=== PATIENT | male | born 1985 | race African-American/Black ===

== ENCOUNTER 2016-07-16 09:00 | Emergency (ER) | payer MEDICAID ==
[~2016-07-16] VITALS: Ht 190.5 cm; Wt 87.1 kg
[~2016-07-16 09:00] MED LIST: COLACE100 MG ORAL; CYCLOBENZAPRINE10 MG ORAL; IBUPROFEN600 MG ORAL; NKM; NORCO 5-325 TA1 EACH ORAL
[2016-07-16 09:04] VITALS: BP 126/78
--- NOTE | 2016-07-16 09:39 | Emergency Room Report ---
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 Pain is worse with trying to step and flex the ankle Mainly in the lower part of the ankle posteriorly Patient reports having previous surgery many years ago for Achilles tendon rupture Denies any other recent fall or trauma denies any swelling or erythema Allergies: Coded Allergies: No Known Allergies (Unverified , 02/03/12) Patient History Past Medical History: see triage record Pertinent Family History: none Reviewed Nursing Documentation: PMH: Agreed, PSxH: Agreed Nursing Documentation-PMH Past Medical History: No History, Except For Review of Systems All Other Systems: negative except mentioned in HPI Physical Exam Vital Signs Date Time Temp Pulse Resp B/P Pulse Ox O2 Delivery O2 Flow Rate FiO2 07/16/16 09:04 97.9 66 14 126/78 96 Room Air Sp02 EP Interpretation: reviewed, normal General Appearance: well appearing, no apparent distress Head: normocephalic, atraumatic Eyes: bilateral eye PERRL Musculoskeletal: other - Patient's Achilles tendon is palpable and appears to be appropriately clinically in place, calf is nontender, flexion of the ankle however does cause some discomfort posteriorly, no obvious swelling or erythema , good pulses distally Neurologic: alert, oriented x3, responsive Skin: no rash Lymphatic: no adenopathy Procedures Splinting Progress Posterior short leg splint was applied, does immobilize the ankle well, patient remains neurovascularly intact Already has crutches in place Medical Decision Making Diagnostic Impression: Primary Impression: Achilles tendinitis Additional Impression: Achilles tendon pain ER Course Patient appears to have had a presentation here and of April He has not had any further followup since then He states that in mid May he was starting to have more mobility Another discomfort is again returned I had a fairly lengthy discussion regarding the need for close outpatient followup MRI will be the test of choice for the patient to receive further information unfortunately does not meet emergency criteria for this Patient was provided the name of a primary physician And requires close followup Last Vital Signs Date Time Temp Pulse Resp B/P Pulse Ox O2 Delivery O2 Flow Rate FiO2 07/16/16 09:04 97.9 66 14 126/78 96 Room Air Status: improved Disposition: HOME, SELF-CARE Condition: Improved Additional Instructions: Patient is provided with the discharge instructions notified to follow up with primary doctor in the next 2-3 days otherwise return to the er with any worsening symptoms. CHRIS AVILES D.O. Jul 16, 2016 09:39
[2016-07-16] MEDS ORDERED: IBUPROFEN600 MG ORAL (10:07)
[2016-07-16 10:17] VITALS: BP 120/70
== END 2016-07-16 10:20 | disposition home or self-care (01) ==
LOC: EMR 09:34
DX: M76.62 Achilles tendinitis, left leg (principal)
CPT/HCPCS: 29515

== ENCOUNTER 2016-10-21 19:45 | Emergency (ER) | payer MEDICAID ==
[~2016-10-21] VITALS: Ht 190.5 cm; Wt 90.7 kg
[2016-10-21] MEDS ORDERED: Ketorolac 30mg Inj IM ONE (20:15)
[2016-10-21] MEDS ORDERED: TRAMADOL HCL50 MG ORAL (21:01)
[2016-10-21] MEDS ORDERED: IBUPROFEN600 MG ORAL (21:01)
[2016-10-21 21:30] VITALS: BP 114/67
--- NOTE | 2016-10-21 21:39 | Emergency Room Report ---
History of Present Illness General Chief Complaint: Lower Extremity Injury Source: Patient Present Illness HPI The patient is a 31-year-old male presenting for left ankle pain. The patient states that he was descending stairs and fell to the left ankle twist. Pain is described as a 9/10 dull ache and does not radiate from the ankle. Pain is worse with walking. He has tried Motrin at home which has not significantly helped. He denies prior injury to the ankle. He denies any other symptoms including nausea, vomiting, fever, chills, numbness or tingling, rash Allergies: Coded Allergies: No Known Allergies (Unverified , 02/03/12) Patient History Past Medical History: see triage record Pertinent Family History: none Reviewed Nursing Documentation: PMH: Agreed, PSxH: Agreed Nursing Documentation-PMH Past Medical History: No Stated History Review of Systems All Other Systems: negative except mentioned in HPI Physical Exam Vital Signs Date Time Temp Pulse Resp B/P Pulse Ox O2 Delivery O2 Flow Rate FiO2 10/21/16 19:59 98.1 59 16 114/67 98 Room Air Sp02 EP Interpretation: reviewed, normal General Appearance: no apparent distress, alert, GCS 15, non-toxic Head: normocephalic, atraumatic Eyes: bilateral eye PERRL, bilateral eye normal inspection Musculoskeletal: decreased range of motion, swelling, tender - TTP over the Lateral L ankle Neurologic: alert, oriented x3, responsive, motor strength/tone normal, sensory intact, speech normal Psychiatric: judgement/insight normal, memory normal, mood/affect normal, no suicidal/homicidal ideation Skin: normal color, no rash, warm/dry, well hydrated Lymphatic: no adenopathy Procedures Splinting Splinting : Consent: Verbal Location: L leg Hand-Made Type: plaster Splint: poserior short Pre-Proc Neuro Vasc Exam: normal Post-Proc Neuro Vasc Exam: normal Patient Tolerated: Well Complications: None Medical Decision Making PA Attestation Dr. Beebe is my supervising physician. Patient management was discussed with my supervising physician Diagnostic Impression: Primary Impression: Ankle sprain Qualified Codes: S93.402A - Sprain of unspecified ligament of left ankle, initial encounter ER Course The patient is a 31-year-old male presenting for left ankle pain Ddx considered include but not limited to sprain/strain, fracture, contusion Physical exam: Vitals within normal limits. No apparent distress Left ankle: There is tenderness to palpation and edema over the left lateral malleolus. Limited active range of motion. Sensation intact to light touch. X-ray of the left ankle shows STS only And left leg posterior splint is placed. Patient has crutches. ER precautions are given. Patient given prescription for pain medication and will follow up with primary care physician. RICE instructions given Other X-Ray Diagnostic Results Other X-Ray Diagnostic Results : X-Ray Ordered: L ankle Date: Oct 21, 2016 EP Interpretation: Yes Findings: no fractures, no dislocation, other - + STS Number of Views: 3 PA Scribe Text I am acting as scribe for my supervising physician. My supervising physician's interpretation of the L ankle xrays are there are no fractures, dislocations or soft tissue swelling. Last Vital Signs Date Time Temp Pulse Resp B/P Pulse Ox O2 Delivery O2 Flow Rate FiO2 10/21/16 19:59 98.1 59 16 114/67 98 Room Air Status: improved Disposition: HOME, SELF-CARE Condition: Improved Scripts Tramadol Hcl* (ULTRAM*) 50 Mg Tablet 50 MG ORAL Q6H Y for For Pain, #10 TAB 0 Refills Prov: DULCE MARIA MONTEJO P.A. 10/21/16 Ibuprofen* (MOTRIN*) 600 Mg Tablet 600 MG ORAL Q8H Y for For Pain, #30 TAB 0 Refills Prov: DULCE MARIA MONTEJO P.A. 10/21/16 Patient Instructions: Ankle Sprain Additional Instructions: I discussed my findings with the patient. All questions and concerns have been answered. Treatment and medication compliance have been addressed. I advised the patient that they need to follow up with PMD in 3-5 days. Return to ED if pain remains or worsens, numbness or tingling occurs, new rash is noticed, fever is noticed, or if needed for any reason. Patient verbalized understanding of discharge instructions. DULCE MARIA MONTEJO Oct 21, 2016 21:39
--- NOTE | 2016-10-22 11:23 | Diagnostic Imaging Report ---
Indication: PAIN Technique: 3 views of the left ankle Comparison: 04/30/2016 Findings: No acute fractures. No dislocations. Joint spaces are preserved. Normal mineralization. No radiopaque foreign body. No significant change Impression: Negative
== END 2016-10-21 21:32 | disposition home or self-care (01) ==
LOC: EMR 20:20
DX: S93.402A Sprain of unspecified ligament of left ankle, initial encounter (principal); W10.9XXA Fall (on) (from) unspecified stairs and steps, initial encounter; Y92.89 Other specified places as the place of occurrence of the external cause
CPT/HCPCS: 29515; 73610; 96372; 97761; 99284; J1885

== ENCOUNTER 2016-12-24 21:54 | Emergency (ER) | payer MEDICAID ==
[~2016-12-24] VITALS: Ht 193 cm; Wt 86.2 kg
[~2016-12-24 21:54] MED LIST changes: +TRAMADOL HCL50 MG ORAL
[2016-12-24 22:30] VITALS: BP 115/72
[2016-12-24] MEDS ORDERED: Tylenol #3 tab (300mg/30mg) PO ONE (23:15)
[2016-12-24] MEDS ORDERED: NORCO 5-325 TA1 EACH ORAL (23:56)
[2016-12-24] MEDS ORDERED: IBUPROFEN600 MG ORAL (23:56)
[2016-12-25 00:15] VITALS: BP 121/65
--- NOTE | 2016-12-25 03:52 | Emergency Room Report ---
History of Present Illness General Chief Complaint: Multiple Trauma/Fall Source: Patient Present Illness HPI 31-year-old male presents ED for evaluation. States that tonight he was walking down the stairs when he tripped and fell landing on his right knee. Denies any other injuries. Notes pain and swelling to his right knee. 02/10, nonradiating. Unable to bare weight. Patient came with crutches. Denies any other injuries. No other aggravating relieving factors. Denies any other associated symptoms Allergies: Coded Allergies: No Known Allergies (Unverified , 02/03/12) Patient History Past Medical History: none Past Surgical History: none Pertinent Family History: none Social History: Denies: alcohol use, drug use, smoking Immunizations: UTD Reviewed Nursing Documentation: PMH: Agreed, PSxH: Agreed Review of Systems All Other Systems: negative except mentioned in HPI Physical Exam Vital Signs Date Time Temp Pulse Resp B/P Pulse Ox O2 Delivery O2 Flow Rate FiO2 12/24/16 22:22 98.1 63 16 115/72 97 Room Air Sp02 EP Interpretation: reviewed, normal General Appearance: no apparent distress, alert, GCS 15, non-toxic Head: normocephalic Eyes: bilateral eye PERRL, bilateral eye normal inspection ENT: normal ENT inspection Neck: normal inspection Respiratory: normal inspection Cardiovascular #1: normal inspection Gastrointestinal: normal inspection Rectal: deferred Genitourinary: no CVA tenderness Musculoskeletal: normal range of motion, tender - R knee Neurologic: alert, oriented x3, responsive, motor strength/tone normal, sensory intact, speech normal Psychiatric: normal inspection Skin: normal inspection Lymphatic: normal inspection Procedures Splinting Splinting : Consent: Verbal Pre-Made Type: knee immobilizer Pre-Proc Neuro Vasc Exam: normal Post-Proc Neuro Vasc Exam: normal Patient Tolerated: Well Complications: None Medical Decision Making Diagnostic Impression: Primary Impression: Knee injury Qualified Codes: S89.91XA - Unspecified injury of right lower leg, initial encounter Additional Impression: Avulsion fracture of tibial tuberosity ER Course Hospital Course 31-year-old M presents to ED complaining of R knee pain s/p trip and fall Differential diagnoses include: Fracture, dislocation, sprain, contusion Clinical course Patient placed on stretcher. After initial history and physical, I ordered pain medications and Xrays of R knee Xrays prelim read shows avulsion fx of tibial tubercle. placed in knee immobilzer Diagnosis - avulsion fracture of tibial tuberosity Stable and discharged to home with prescription for Motrin, [place]. apply ice, keep elevated. weight bear as tolerated. Followup with PMD. Return to ED if symptoms recur or worsen Other X-Ray Diagnostic Results X-Ray ordered: R knee # of Views/Limited Vs Complete: 3 View EP Interpretation: Yes Interpretation: no dislocation, no soft tissue swelling, other - fracture tibial tubercle Indication: Pain Impression: Other - fracture tibial tubercle Interpreting ER Provider: Gage Rice mD Last Vital Signs Date Time Temp Pulse Resp B/P Pulse Ox O2 Delivery O2 Flow Rate FiO2 12/24/16 22:22 98.1 63 16 115/72 97 Room Air Status: improved Disposition: HOME, SELF-CARE Condition: Stable Scripts Hydrocodone Bit/Acetaminophen 5-325* (NORCO 5-325*) 1 Each Tablet 1 TAB ORAL Q6H Y for For Pain, #10 TAB 0 Refills Prov: GAGE RICE M.D. 12/24/16 Ibuprofen* (MOTRIN*) 600 Mg Tablet 600 MG ORAL Q8H Y for For Pain, #30 TAB 0 Refills Prov: GAGE RICE M.D. 12/24/16 Patient Instructions: Tibial Tubercle Avulsion Fracture-SportsMed GAGE RICE M.D. Dec 25, 2016 03:52
--- NOTE | 2016-12-25 06:53 | Diagnostic Imaging Report ---
Indications: Right knee pain Technique: 3 views right knee. Findings: Comparison: None Linear lucency partially traverses the base of a large spur emanating from the tibial tuberosity in region of patellar tendon insertion. No overlying soft tissue swelling. No additional fracture, dislocation, joint space widening or effusion, lytic destruction, periosteal reaction , surrounding soft tissue swelling/foreign body/gas, or other acute changes are identified. Lateral knee joint compartment mildly narrowed with marginal osteophyte formation. No other chronic changes are demonstrated. IMPRESSION: Suggestion of fracture through base of tibial tuberosity enthesophyte, appears nonacute. Correlate clinically.. No other evidence of acute abnormality Degenerative arthropathy lateral knee compartment
== END 2016-12-25 00:15 | disposition home or self-care (01) ==
LOC: EMR 22:44
DX: S82.151A Displaced fracture of right tibial tuberosity, initial encounter for closed fracture (principal); W10.9XXA Fall (on) (from) unspecified stairs and steps, initial encounter; Y92.89 Other specified places as the place of occurrence of the external cause
CPT/HCPCS: 29530; 99284

== ENCOUNTER 2017-04-03 11:57 | Emergency (ER) | payer MEDICAID ==
[~2017-04-03] VITALS: Ht 193 cm; Wt 90.7 kg
[2017-04-03] MEDS ORDERED: Norco 5mg/325mg tab ORAL ONE (12:30)
--- NOTE | 2017-04-03 13:00 | Emergency Room Report ---
History of Present Illness General Chief Complaint: Lower Extremity Injury Source: Patient (Jessy Ramires) Present Illness HPI 31-year-old male presents to the emergency department complaining of 10/10 in severity localized pain to the medial portion of the plantar left foot times one day. Patient states that he heard a pop and had pain instantly. Patient states pain is exacerbated upon bearing weight and attempting to walk. History of stress fracture in addition to the Achilles tendon injury 4 years prior in the affected extremity. Patient denies appreciable trauma or fall. Denies bruising, erythema or swelling. Denies numbness tingling or loss of sensation or gross motor movements of the extremities, incontinence of bowel or bladder. Denies CP, Palpitations, LOC, AMS, dizziness, Changes in Vision, Sensation, paresthesias, or a sudden severe headache. (Jessy Ramires) Allergies: Coded Allergies: No Known Allergies (Unverified , 02/03/12) Patient History Past Medical History: see triage record Past Surgical History: none Pertinent Family History: none Immunizations: UTD Reviewed Nursing Documentation: PMH: Agreed, PSxH: Agreed (Jessy Ramires) Nursing Documentation-PMH Past Medical History: No History, Except For (Jessy Ramires) Review of Systems All Other Systems: negative except mentioned in HPI (Jessy Ramires) Physical Exam Vital Signs Date Time Temp Pulse Resp B/P (MAP) Pulse Ox O2 Delivery O2 Flow Rate FiO2 04/03/17 12:19 98.1 69 18 122/77 100 Room Air Sp02 EP Interpretation: reviewed, normal General Appearance: no apparent distress, alert, GCS 15, non-toxic Head: normocephalic, atraumatic Eyes: bilateral eye normal inspection, bilateral eye PERRL ENT: hearing grossly normal, normal voice Neck: full range of motion Respiratory: lungs clear, normal breath sounds Cardiovascular #1: regular rate, rhythm Rectal: deferred Musculoskeletal: back normal, normal range of motion, tender - TTP to the medial plantar aspect of the left foot, no bruising, no obvious deformity, no swelling, NVI Neurologic: alert, oriented x3, responsive, motor strength/tone normal, sensory intact, speech normal Skin: normal color, no rash, warm/dry, well hydrated Lymphatic: no adenopathy (Jessy Ramires) Medical Decision Making PA Attestation Dr. Almanzar is my supervising Physician whom patient management has been discussed with. (Jessy Ramires) Diagnostic Impression: Primary Impression: Sprain of foot, left Qualified Codes: S93.602A - Unspecified sprain of left foot, initial encounter ER Course 31-year-old male presents to the emergency department complaining of 10/10 in severity localized pain to the medial portion of the plantar left foot times one day. Patient states that he heard a pop and had pain instantly. Patient states pain is exacerbated upon bearing weight and attempting to walk. History of stress fracture in addition to the Achilles tendon injury 4 years prior in the affected extremity. Patient denies appreciable trauma or fall. Denies bruising, erythema or swelling. Denies numbness tingling or loss of sensation or gross motor movements of the extremities, incontinence of bowel or bladder. Denies CP, Palpitations, LOC, AMS, dizziness, Changes in Vision, Sensation, paresthesias, or a sudden severe headache. Ddx considered but are not limited to Fracture, dislocation, contusion, Sprain/ Strain/Spasm just to name a few. Vital signs: are WNL, pt. is afebrile H&PE are most consistent with musculoskeletal injury will perform imaging to r/ o fractures/dislocations. ORDERS: - X-ray Left foot 3 views - negative for fx, Dislocation, or significant soft tissue injury, per preliminary read in ED by Dr. Almanzar - interpretation is scribed by PA. ED INTERVENTIONS: - [place] PO -Pt. already has crutches which he brought from home. Pt. declined [place] Wrap. DISCHARGE: At this time pt. is stable for d/c to home. Will provide printed patient care instructions, and any necessary prescriptions. Care plan and follow up instructions have been discussed with the patient prior to discharge. (Jessy Ramires) Other X-Ray Diagnostic Results Other X-Ray Diagnostic Results : Electronically Signed by: Scribe documentation reviewed by me and is accurate Carlos Almanzar MD (Carlos Almanzar M.D.) Last Vital Signs Date Time Temp Pulse Resp B/P (MAP) Pulse Ox O2 Delivery O2 Flow Rate FiO2 04/03/17 12:19 98.1 69 18 122/77 100 Room Air (Jessy Ramires) Disposition: HOME, SELF-CARE Condition: Stable Scripts Naproxen* (NAPROSYN*) 500 Mg Tablet 500 MG ORAL TWICE A DAY for 10 Days, #20 TAB Prov: Jessy Ramires 04/03/17 Patient Instructions: Foot Sprain Additional Instructions: Take medications as directed. Follow up with a Primary Care Provider in 3-5 days, even if your symptoms have resolved. --Please review list of primary care clinics, if you do not already have a primary care provider Return sooner to ED if new symptoms occur, or current symptoms become worse. Do not drink alcohol, drive, or operate heavy machinery while taking [ ] as this may cause drowsiness. - Please note that this Emergency Department Report was dictated using [employer] events driver technology software, occasionally this can lead to erroneous entry secondary to interpretation by the dictation equipment. Jessy Ramires Apr 03, 2017 13:00 Carlos Almanzar M.D. Apr 07, 2017 21:59
[2017-04-03] MEDS ORDERED: NAPROSYN500 M1 ORAL (13:17)
[2017-04-03 14:00] VITALS: BP 121/80
--- NOTE | 2017-04-04 11:24 | Diagnostic Imaging Report ---
Indication: Pain Comparison: None Findings: 3 views of the left foot were obtained. The lateral view there is a suspected small cortical defect or osteochondral defect suggest further evaluation with MRI. No acute fractures, malalignment are identified. Soft tissues are unremarkable. Impression: Questionable small osseous defect anterior aspect of the tibial plafond. Recommend further evaluation with MRI
== END 2017-04-03 14:00 | disposition home or self-care (01) ==
LOC: EMR 13:09
DX: S93.602A Unspecified sprain of left foot, initial encounter (principal); X50.9XXA Other and unspecified overexertion or strenuous movements or postures, initial encounter; Y92.89 Other specified places as the place of occurrence of the external cause
CPT/HCPCS: 99283

== ENCOUNTER 2017-08-24 19:53 | Emergency (ER) | payer MEDICAID ==
[~2017-08-24] VITALS: Ht 190.5 cm; Wt 90.7 kg
[~2017-08-24 19:53] MED LIST changes: +NAPROSYN500 M1 ORAL
[2017-08-24 20:05] VITALS: BP 116/68
[2017-08-24] MEDS ORDERED: Ketorolac 60mg Inj IM ONE (20:15)
[2017-08-24] MEDS ORDERED: HYDROcodone/Acetamin 10/325 tab ORAL ONE (20:15)
[2017-08-24] MEDS ORDERED: IBUPROFEN600 MG ORAL (20:16)
[2017-08-24] MEDS ORDERED: ROBAXIN-750750 MG PO (20:16)
--- NOTE | 2017-08-24 20:20 | Emergency Room Report ---
History of Present Illness General Chief Complaint: Back Pain-No Injury Source: Patient Present Illness HPI 32YOM with upper back pain/spasm since waking up this morning Worked out as normal yesterday afternoon No other trauma, heavy lifting Denies numbness/tingling or pain radiating to arms or head/neck No OTC meds taken Allergies: Coded Allergies: No Known Allergies (Unverified , 02/03/12) Patient History Past Medical History: none Past Surgical History: none Pertinent Family History: none Social History: Denies: smoking, alcohol use, drug use Immunizations: UTD Reviewed Nursing Documentation: PMH: Agreed, PSxH: Agreed Review of Systems All Other Systems: negative except mentioned in HPI Physical Exam Vital Signs Date Time Temp Pulse Resp B/P (MAP) Pulse Ox O2 Delivery O2 Flow Rate FiO2 08/24/17 20:00 97.8 59 20 116/68 99 Room Air 97.9 Sp02 EP Interpretation: reviewed, normal General Appearance: normal inspection, well appearing, no apparent distress, alert, GCS 15, non-toxic Head: normocephalic, atraumatic Eyes: bilateral eye PERRL, bilateral eye EOMI ENT: normal ENT inspection, hearing grossly normal, normal pharynx, no angioedema, normal voice, TMs + canals normal, uvula midline, moist mucus membranes Neck: normal inspection, full range of motion, supple, thyroid normal, no meningismus, no bony tend Respiratory: normal inspection, lungs clear, normal breath sounds, no rhonchi, no respiratory distress, no retraction, no accessory muscle use, no wheezing, speaking full sentences Cardiovascular #1: regular rate, rhythm, no edema, no JVD, normal capillary refill Gastrointestinal: normal inspection, normal bowel sounds, non tender, soft, no mass, no peritonitis, non-distended, no guarding, no hernia, no pulsatile mass Genitourinary: no CVA tenderness Musculoskeletal: normal inspection, back normal, normal range of motion, no calf tenderness, pelvis stable, Debbi's Sign negative, other - Upper thorax: mild paravertebral ttp, spasm Neurologic: normal inspection, alert, oriented x3, responsive, vegetable farmer III-XII nml as tested, motor strength/tone normal, cerebellar normal, normal gait, speech normal Psychiatric: normal inspection, judgement/insight normal, mood/affect normal, no suicidal/homicidal ideation, no delusions Skin: normal inspection, normal color, no rash Lymphatic: normal inspection, no adenopathy Medical Decision Making Diagnostic Impression: Primary Impression: Back pain Qualified Codes: M54.6 - Pain in thoracic spine ER Course VSS, afebrile Midline thoracic spasm Atraumatic Was given cocktail of meds in ED with improvement Rx motrin, robaxin ER course: Patient has remained stable during ED stay. Disposition: Patient is to be discharged to home. Prescriptions given are motrin, robaxin Patient is instructed to follow up with their primary care doctor within 5 days. Strict return precautions discussed with patient such as fever, chills, worsening/severe pain, nausea, vomiting, which may indicate severe illness. Patient verbalizes understanding and agrees with plan. Please note that this Emergency Department Report was dictated using [employer] soloist technology software, occasionally this can lead to erroneous entry secondary to interpretation by the dictation equipment Last Vital Signs Date Time Temp Pulse Resp B/P (MAP) Pulse Ox O2 Delivery O2 Flow Rate FiO2 08/24/17 20:05 97.9 69 20 116/68 99 Room Air 97.9 Status: improved Disposition: HOME, SELF-CARE Condition: Improved Scripts Methocarbamol* (ROBAXIN-750*) 750 Mg Tablet 750 MG PO TID for back pain for 7 Days, #30 TAB 0 Refills Prov: STANFORD WRIGHT M.D. 08/24/17 Ibuprofen* (MOTRIN*) 600 Mg Tablet 600 MG ORAL THREE TIMES A DAY for back pain for 7 Days, #30 TAB 0 Refills Prov: STANFORD WRIGHT M.D. 08/24/17 Patient Instructions: Thoracic Strain, [id number] Additional Instructions: - Take Robaxin with motrin every 8 hours with food for pain - Apply ice or heat to see what works better - Continue to stretch, do cardio to loosen muscles STANFORD WRIGHT M.D. Aug 24, 2017 20:20
[2017-08-24 20:30] VITALS: BP 116/68
== END 2017-08-24 20:31 | disposition home or self-care (01) ==
LOC: EMR 20:31
DX: M54.6 Pain in thoracic spine (principal)
CPT/HCPCS: 96372; 99284

== ENCOUNTER 2017-12-13 14:08 | Emergency (ER) | payer MEDICAID ==
[~2017-12-13] VITALS: Ht 190.5 cm; Wt 88.5 kg
[~2017-12-13 14:08] MED LIST changes: +ROBAXIN-750750 MG PO
[2017-12-13 14:55] VITALS: BP 110/67
--- NOTE | 2017-12-13 15:11 | Emergency Room Report ---
History of Present Illness General Chief Complaint: Back Pain-No Injury Source: Patient Present Illness HPI 32-year-old male patient presents ER complaining of upper back and neck pain since this morning. Reports that he woke up and felt a spasm. Reports history of similar symptoms, was previously seen at [facility] for similar symptoms. Denies other acute symptoms at this time. Denies history of diabetes. Denies vomiting or acute trauma. Reports was seen by PCP but did not get referral to physical therapy or other follow-up. Denies fever, chest pain, shortness of breath. Allergies: Coded Allergies: No Known Allergies (Unverified , 02/03/12) Patient History Past Medical History: see triage record Reviewed Nursing Documentation: PMH: Agreed; PSxH: Agreed Nursing Documentation-PMH Past Medical History: No History, Except For Review of Systems All Other Systems: negative except mentioned in HPI Physical Exam Vital Signs Date Time Temp Pulse Resp B/P (MAP) Pulse Ox O2 Delivery O2 Flow Rate FiO2 12/13/17 14:45 98.0 50 16 110/67 98 Room Air 98.1 Sp02 EP Interpretation: reviewed, normal General Appearance: well appearing, no apparent distress, alert, GCS 15, non- toxic Head: normocephalic, atraumatic Eyes: bilateral eye normal inspection, bilateral eye PERRL ENT: hearing grossly normal, normal pharynx, no angioedema, normal voice, uvula midline, moist mucus membranes Neck: no bony tend, other - decreased range of motion secondary to pain and stiffness Respiratory: lungs clear, normal breath sounds, no rhonchi, no respiratory distress, no accessory muscle use, no wheezing, speaking full sentences Cardiovascular #1: regular rate, rhythm, no edema Musculoskeletal: back normal, digits/nails normal, gait/station normal, normal range of motion, non-tender, other - no bony step-off Neurologic: alert, oriented x3, responsive, motor strength/tone normal, sensory intact Psychiatric: mood/affect normal Skin: no rash Medical Decision Making PA Attestation Dr. Crandall is my supervising Physician whom patient management has been discussed with. Diagnostic Impression: Primary Impression: Muscle spasm ER Course Pt. presents to the ED c/o Neck and upper back pain. Ddx considered but are not limited to fracture, sprain, strain, contusion, dislocation. No erythema, no warmth to touch, no fever, nontoxic appearing, low suspicion for septic joint. Vital signs: are WNL, pt. is afebrile Ordered X-ray and pain medication. ER COURSE Provided with pain medication. CURES reviewed. PE benign, no bony tenderness, no TTP. reports history of similar symptoms. Likely muscle spasm. Patient instructed on rest, ice and heat. Followup with primary care provider. Discuss referral to ortho/pain management/ PT as needed. Discuss further imaging with MRI/CT as needed. DISCHARGE: -Rx provided for Ibuprofen for pain symptoms. -Rx provided for Methocarbamol. SE drowsiness, do not drink, drive, or operate heavy machinery while using. -Rx provided for lidocaine patches. At this time pt. is stable for d/c to home. Patient is resting comfortably, in no acute distress, nontoxic appearing, talking without difficulty. Will provide printed patient care instructions, and any necessary prescriptions. Patient instructed to follow with primary care provider in 3 - 5 days and to request further follow-up as needed. Care plan and follow up instructions have been discussed with the patient prior to discharge. Take medications as directed. Patient questions asked and answered. Patient reports understanding and agreement to treatment plan. ER precautions given, patient instructed to return to ER immediately for any new or worsening of symptoms. - Please note that this Emergency Department Report was dictated using [email or web address] technology software, occasionally this can lead to erroneous entry secondary to interpretation by the dictation equipment. Last Vital Signs Date Time Temp Pulse Resp B/P (MAP) Pulse Ox O2 Delivery O2 Flow Rate FiO2 12/13/17 14:55 98.1 50 16 110/67 98 Room Air 98.1 Disposition: HOME, SELF-CARE Condition: Stable Scripts Lidocaine (Lidocaine) 1 Each Adh..patch 700 MG TP DAILY for 5 Days, #5 PATCH Prov: Wellington John P.A. 12/13/17 Ibuprofen* (MOTRIN*) 600 Mg Tablet 600 MG ORAL Q8H PRN for For Pain, #30 TAB 0 Refills Prov: Wellington John P.A. 12/13/17 Methocarbamol* (METHOCARBAMOL*) 500 Mg Tablet 500 MG ORAL BID PRN for For Pain, #20 TAB 0 Refills Prov: Wellington John.A. 12/13/17 Patient Instructions: Back Exercises, [id number], Muscle Cramps and Spasms Additional Instructions: Patient instructed to follow up with primary care provider and discuss further referral to orthopedics and physical therapy. Patient instructed on rest, ice, heat. Take medications as directed. SE drowsiness, do not take prior to drinking, driving, or operating heavy machinery. Patient questions asked and answered. ER precautions given, patient instructed to return to ER immediately for any new or worsening of symptoms. Wellington John Dec 13, 2017 15:11
[2017-12-13] MEDS ORDERED: IBUPROFEN600 MG ORAL (15:15)
[2017-12-13] MEDS ORDERED: Norco 5mg/325mg tab ORAL ONE (15:15)
[2017-12-13] MEDS ORDERED: Methocarbamol 500mg tab ORAL ONE (15:15)
[2017-12-13] MEDS ORDERED: METHOCARBAMOL500 MG ORAL (15:15)
[2017-12-13] MEDS ORDERED: LIDOCAINE700 M1 TP (15:15)
[2017-12-13 15:28] VITALS: BP 110/67
== END 2017-12-13 15:25 | disposition home or self-care (01) ==
LOC: EMR 15:10
DX: M62.838 Other muscle spasm (principal); M54.6 Pain in thoracic spine; M54.2 Cervicalgia
CPT/HCPCS: 99284

== ENCOUNTER 2018-04-15 15:07 | Emergency (ER) | payer MEDICAID ==
[~2018-04-15] VITALS: Ht 190.5 cm; Wt 88.5 kg
[~2018-04-15 15:07] MED LIST changes: +LIDOCAINE700 M1 TP; +METHOCARBAMOL500 MG ORAL
[2018-04-15] MEDS ORDERED: Lidocaine 2% Visc 15ml soln ORAL ONE (15:45)
[2018-04-15] MEDS ORDERED: Mylanta II UD 30ml ORAL ONE (15:45)
--- NOTE | 2018-04-15 15:58 | Diagnostic Imaging Report ---
EXAM: XR Chest, 1 View CLINICAL HISTORY: PAIN TECHNIQUE: Frontal view of the chest. COMPARISON: No relevant prior studies available. FINDINGS: Lungs: Unremarkable. No consolidation. Pleural space: Unremarkable. No pneumothorax. Heart: Unremarkable. No cardiomegaly. Mediastinum: Unremarkable. Bones/joints: Unremarkable. IMPRESSION: No acute cardiopulmonary disease.
[2018-04-15 16:02] VITALS: BP 120/77
[2018-04-15] MEDS ORDERED: Isovue-300 100ml vial INJ PRN (16:15)
[2018-04-15] MEDS ORDERED: Ketorolac 30mg Inj IV ONE (16:15)
[2018-04-15 16:41] LABS: BASOPHILS % (AUTO) 0.9 % (0.0-2.0); HEMATOCRIT 38.8 % (42.0-52.0); HEMOGLOBIN 13.5 G/DL (14.2-18.0); LYMPHOCYTES % (AUTO) 23.8 % (20.0-45.0); MEAN CORPUSCULAR VOLUME 92 FL (80-99); MONOCYTES % (AUTO) 10.6 % (1.0-10.0); NEUTROPHILS % (AUTO) 63.8 % (45.0-75.0); PLATELET COUNT 202 K/UL (150-450); RED BLOOD COUNT 4.24 M/UL (4.70-6.10); RED CELL DISTRIBUTION WIDTH 11.5 % (11.6-14.8)
[2018-04-15 17:23] LABS: ANION GAP 5 mmol/L (5-15); BLOOD UREA NITROGEN 22 mg/dL (7-18); CALCIUM 8.8 MG/DL (8.5-10.1); CARBON DIOXIDE 32 MMOL/L (21-32); CHLORIDE 105 MMOL/L (98-107); CREATININE 1.2 MG/DL (0.55-1.30); POTASSIUM 4.2 MMOL/L (3.5-5.1); SODIUM 142 MMOL/L (136-145)
--- NOTE | 2018-04-15 17:23 | Emergency Room Report ---
History of Present Illness General Chief Complaint: Pain Source: Patient (Jessy Ramires) Present Illness HPI 32-year-old male presents to the emergency department with 2 complaints. First is 8 out of 10 in severity pain in the anterior chest as well as radiation up towards the right side of his neck 2 days. Patient reports pain is worse with taking deep breaths he denies cough, fevers, chills or trauma to the chest. Patient states that he had URI symptoms 2 weeks ago but denies moderate coughing. Patient is also complaining of frequent stools some of which have been diarrhea times one day. Denies constipation previously. Patient also states he has a burning sensation in his stomach. He denies nausea or vomiting. Denies recent travel or ill contacts with similar symptoms. Patient also reports that 2 days ago he was drinking and is wondering if this may have contributed to his symptoms. Patient Denies history of asthma or COPD. Reports that his pain has been progressive. Pt. denies more strenuous activities than what he normally does. Pt. first noticed pain in his chest while on a hike yesterday. pt. reports deep breaths exacerbate his pain. (Jessy Ramires) Allergies: Coded Allergies: No Known Allergies (Unverified , 02/03/12) Patient History Past Medical History: see triage record Past Surgical History: none Pertinent Family History: none Reviewed Nursing Documentation: PMH: Agreed; PSxH: Agreed (Jessy Ramires) Nursing Documentation-PMH Past Medical History: No History, Except For (Jessy Ramires) Review of Systems All Other Systems: negative except mentioned in HPI (Jessy Ramires) Physical Exam Vital Signs Date Time Temp Pulse Resp B/P (MAP) Pulse Ox O2 Delivery O2 Flow Rate FiO2 04/15/18 15:13 98.6 59 16 111/67 96 Room Air 98.6 Sp02 EP Interpretation: reviewed, normal General Appearance: well appearing, no apparent distress, alert, GCS 15, non- toxic Head: normocephalic, atraumatic Eyes: bilateral eye normal inspection ENT: hearing grossly normal, normal voice Neck: full range of motion Respiratory: chest non-tender, lungs clear, normal breath sounds, no respiratory distress, no accessory muscle use, no wheezing, speaking full sentences Cardiovascular #1: regular rate, rhythm Gastrointestinal: normal bowel sounds - mildly hyperactive bs in all 4 quadrants. mild epigastric ttp, otherwise unremarkable, non tender, soft, non- distended, no guarding Rectal: deferred Musculoskeletal: back normal, gait/station normal, normal range of motion, tender - pain is reproducible with palpation of anterior chest, right clavicular area and lesser but present in posterior ribs. Neurologic: alert, oriented x3, responsive, motor strength/tone normal, sensory intact, normal gait, speech normal, grossly normal Psychiatric: judgement/insight normal Skin: normal color, no rash, warm/dry, well hydrated Lymphatic: no adenopathy (Jessy Ramires) Procedures Critical Care Time Critical Care Time 50 minutes For multiple re-evaluations. Critical findings concerning for cardiopulmonary pathology multiple re-evaluations not including any procedural times (Ashok Crandall DO) Medical Decision Making PA Attestation Dr. Crandall is my supervising Physician whom patient management has been discussed with. (Jessy Ramires) Medicare Attestation Please refer to the note for the full specifics I do agree with the exam and workup I saw the patient as well with evaluation noted Patient's EKG is shared with cardiology Dr young he feels that this is most likely consistent with early re-pole Given the patient's clinical complaints pericarditis is also entertained He is however afebrile here Does not appear in acute distress Further workup is initiated with imaging for consideration of pneumomediastinum versus other Patient otherwise remaining hemodynamically stable (Ashok Crandall DO) Diagnostic Impression: Primary Impression: Pneumomediastinum Additional Impression: Diarrhea Qualified Codes: R19.7 - Diarrhea, unspecified Labs Test 04/15/18 16:20 White Blood Count 6.0 K/UL (4.8-10.8) Red Blood Count 4.24 M/UL (4.70-6.10) Hemoglobin 13.5 G/DL (14.2-18.0) Hematocrit 38.8 % (42.0-52.0) Mean Corpuscular Volume 92 FL (80-99) Mean Corpuscular Hemoglobin 31.8 PG (27.0-31.0) Mean Corpuscular Hemoglobin Concent 34.7 G/DL (32.0-36.0) Red Cell Distribution Width 11.5 % (11.6-14.8) Platelet Count 202 K/UL (150-450) Mean Platelet Volume 8.5 FL (6.5-10.1) Neutrophils (%) (Auto) 63.8 % (45.0-75.0) Lymphocytes (%) (Auto) 23.8 % (20.0-45.0) Monocytes (%) (Auto) 10.6 % (1.0-10.0) Eosinophils (%) (Auto) 1.0 % (0.0-3.0) Basophils (%) (Auto) 0.9 % (0.0-2.0) Sodium Level 142 MMOL/L (136-145) Potassium Level 4.2 MMOL/L (3.5-5.1) Chloride Level 105 MMOL/L (98-107) Carbon Dioxide Level 32 MMOL/L (21-32) Anion Gap 5 mmol/L (5-15) Blood Urea Nitrogen 22 mg/dL (7-18) Creatinine 1.2 MG/DL (0.55-1.30) Estimat Glomerular Filtration Rate > 60 mL/min (>60) Glucose Level 94 MG/DL (74-106) Calcium Level 8.8 MG/DL (8.5-10.1) Total Bilirubin 0.8 MG/DL (0.2-1.0) Aspartate Amino Transf (AST/SGOT) 22 U/L (15-37) Alanine Aminotransferase (ALT/SGPT) 31 U/L (12-78) Alkaline Phosphatase 53 U/L (46-116) Total Creatine Kinase 206 U/L (26-308) Creatine Kinase MB 0.5 NG/ML (0.0-3.6) Creatine Kinase MB Relative Index 0.2 Troponin I 0.000 ng/mL (0.000-0.056) Total Protein 7.4 G/DL (6.4-8.2) Albumin 3.8 G/DL (3.4-5.0) Globulin 3.6 g/dL Albumin/Globulin Ratio 1.1 (1.0-2.7) Lipase 141 U/L (73-393) Urine Opiates Screen Negative (NEGATIVE) Urine Barbiturates Screen Negative (NEGATIVE) Phencyclidine (PCP) Screen Negative (NEGATIVE) Urine Amphetamines Screen Negative (NEGATIVE) Urine Benzodiazepines Screen Negative (NEGATIVE) Urine Cocaine Screen Negative (NEGATIVE) Urine Marijuana (THC) Screen Positive (NEGATIVE) (Ramires,Jessy PA) ER Course Patient's CAT scan does result with findings consistent with pneumomediastinum Patient has several re-evaluations with this remains hemodynamically stable With this finding contact was made emergently with [facility] as the patient will require further specialty consultation Patient's blood work is otherwise at baseline levels Patient does have marijuana positive Contact is made with Dr. Robles cardiothoracic surgery at [facility] who has graciously accepted the patient to her service Patient is getting set for ALS transport for higher level of care Labs Test 04/15/18 16:20 White Blood Count 6.0 K/UL (4.8-10.8) Red Blood Count 4.24 M/UL (4.70-6.10) Hemoglobin 13.5 G/DL (14.2-18.0) Hematocrit 38.8 % (42.0-52.0) Mean Corpuscular Volume 92 FL (80-99) Mean Corpuscular Hemoglobin 31.8 PG (27.0-31.0) Mean Corpuscular Hemoglobin Concent 34.7 G/DL (32.0-36.0) Red Cell Distribution Width 11.5 % (11.6-14.8) Platelet Count 202 K/UL (150-450) Mean Platelet Volume 8.5 FL (6.5-10.1) Neutrophils (%) (Auto) 63.8 % (45.0-75.0) Lymphocytes (%) (Auto) 23.8 % (20.0-45.0) Monocytes (%) (Auto) 10.6 % (1.0-10.0) Eosinophils (%) (Auto) 1.0 % (0.0-3.0) Basophils (%) (Auto) 0.9 % (0.0-2.0) Sodium Level 142 MMOL/L (136-145) Potassium Level 4.2 MMOL/L (3.5-5.1) Chloride Level 105 MMOL/L (98-107) Carbon Dioxide Level 32 MMOL/L (21-32) Anion Gap 5 mmol/L (5-15) Blood Urea Nitrogen 22 mg/dL (7-18) Creatinine 1.2 MG/DL (0.55-1.30) Estimat Glomerular Filtration Rate > 60 mL/min (>60) Glucose Level 94 MG/DL (74-106) Calcium Level 8.8 MG/DL (8.5-10.1) Total Bilirubin 0.8 MG/DL (0.2-1.0) Aspartate Amino Transf (AST/SGOT) 22 U/L (15-37) Alanine Aminotransferase (ALT/SGPT) 31 U/L (12-78) Alkaline Phosphatase 53 U/L (46-116) Total Creatine Kinase 206 U/L (26-308) Creatine Kinase MB 0.5 NG/ML (0.0-3.6) Creatine Kinase MB Relative Index 0.2 Troponin I 0.000 ng/mL (0.000-0.056) Total Protein 7.4 G/DL (6.4-8.2) Albumin 3.8 G/DL (3.4-5.0) Globulin 3.6 g/dL Albumin/Globulin Ratio 1.1 (1.0-2.7) Lipase 141 U/L (73-393) Urine Opiates Screen Negative (NEGATIVE) Urine Barbiturates Screen Negative (NEGATIVE) Phencyclidine (PCP) Screen Negative (NEGATIVE) Urine Amphetamines Screen Negative (NEGATIVE) Urine Benzodiazepines Screen Negative (NEGATIVE) Urine Cocaine Screen Negative (NEGATIVE) Urine Marijuana (THC) Screen Positive (NEGATIVE) (Ashok Crandall DO) EKG Diagnostic Results EP Interpretation: Dr. Crandall Rate: bradycardiac - 50bpm Rhythm: NSR ST Segments: other - diffuse ST elevation ASA given to the pt in ED: No PA Scribe Text This Interpretation was scribed by KAYLYNN Ramires. (Jessy Ramires) Rate: bradycardiac Rhythm: NSR ST Segments: other - Diffuse ST elevation with prolonged QRS (Ashok Crandall DO) Rhythm Strip Diag. Results EP Interpretation: yes Rate: 50 Rhythm: no PVC's, no ectopy, other - Bradycardia (Ashok Crandall DO) Chest X-Ray Diagnostic Results Chest X-Ray Diagnostic Results : Chest X-Ray Ordered: Yes # of Views/Limited/Complete: 1 View Indication: Chest Pain EP Interpretation: Yes PA Xray: Interpretation reviewed, by supervising MD, and agrees with findings. Interpretation: no consolidation, no effusion, no pneumothorax, no acute cardiopulmonary disease Impression: No acute disease Electronically Signed by: Jessy Ramires PA-C (Jessy Ramires) Chest X-Ray Diagnostic Results : Chest X-Ray Ordered: Yes # of Views/Limited/Complete: 1 View Indication: Chest Pain EP Interpretation: Yes Interpretation: no consolidation, no effusion, no pneumothorax Impression: No acute disease Electronically Signed by: Ashok Crandall DO (Ashok Crandall DO) CT/MRI/US Diagnostic Results CT/MRI/US Diagnostic Results : Impression CT chestIMPRESSION: 1. Pneumomediastinumwhich maybe spontaneous, esophageal rupture, airwayrupture, or other etiology. 2. No focal consolidation. 3. No PE or aortic dissection (Ashok Crandall DO) Last Vital Signs Date Time Temp Pulse Resp B/P (MAP) Pulse Ox O2 Delivery O2 Flow Rate FiO2 04/15/18 16:57 98.0 04/15/18 16:02 57 18 120/77 Room Air 04/15/18 15:13 96 (Jessy Ramires) Status: improved (Ashok Crandall DO) Disposition: XFER SHT-TRM HOSP Condition: Critical Referrals: [facility],REFERRING (PCP) Jessy Ramires Apr 15, 2018 17:23 Ashok Crandall DO Apr 15, 2018 17:26
[2018-04-15 17:36] LABS: ALANINE AMINOTRANSFERASE 31 U/L (12-78); ALBUMIN 3.8 G/DL (3.4-5.0); ALBUMIN/GLOBULIN RATIO 1.1 (1.0-2.7); ALKALINE PHOSPHATASE 53 U/L (46-116); ASPARTATE AMINO TRANSFERASE 22 U/L (15-37); BILIRUBIN,TOTAL 0.8 MG/DL (0.2-1.0); CKMB 0.5 NG/ML (0.0-3.6); CREATINE KINASE 206 U/L (26-308)
--- NOTE | 2018-04-15 18:24 | Diagnostic Imaging Report ---
EXAM: CT Chest With Intravenous Contrast CLINICAL HISTORY: PAIN TECHNIQUE: Axial computed tomography images of the chest with intravenous contrast. CTDI is 18 mGy and DLP is 751 mGy-cm. One or more of the following dose reduction techniques were used: automated exposure control, adjustment of the mA and/or kV according to patient size, use of iterative reconstruction technique. COMPARISON: No relevant prior studies available. FINDINGS: Lungs: No focal consolidation. Pleural space: Unremarkable. No pneumothorax. No significant effusion. Heart: Unremarkable. No cardiomegaly. No significant pericardial effusion. Mediastinum: Pneumomediastinum which may be spontaneous, esophageal rupture, airway rupture, or other etiology. Bones/joints: Unremarkable. No acute fracture. Soft tissues: Unremarkable. Vasculature: No PE or aortic dissection. Lymph nodes: Unremarkable. No enlarged lymph nodes. IMPRESSION: 1. Pneumomediastinum which may be spontaneous, esophageal rupture, airway rupture, or other etiology. 2. No focal consolidation. 3. No PE or aortic dissection. Critical Value Communications 04/15/18 18:37 Call From [facility] Ashok Crandall MD on 04/15 18:36 (-07: 00)
[2018-04-15 19:26] VITALS: BP 106/73
[2018-04-15 22:19] VITALS: BP 105/69
[2018-04-15 22:20] VITALS: BP 105/69
== END 2018-04-15 22:21 | disposition short-term general hospital (02) ==
LOC: EMR 15:52
DX: J98.2 Interstitial emphysema (principal); R07.89 Other chest pain; R19.7 Diarrhea, unspecified
CPT/HCPCS: 36415; 71045; 71260; 80053; 80307; 82550; 82553; 83690; 84484; 85025; 93005; 96374; 99291; J1885; Q9967

== ENCOUNTER 2019-02-19 03:08 | Emergency (ER) | payer MEDICAID ==
[~2019-02-19] VITALS: Ht 190.5 cm; Wt 88.5 kg
--- NOTE | 2019-02-19 03:20 | NUR ---
ED Nurse Note: PT FROM HOME WITH C/O ABDOMINAL PAIN AT 9/10 W/ DIARRHEA AND EMESIS. ao4. nad. vss. iv access established. blood and urine sent down to lab.
[2019-02-19] MEDS ORDERED: Ketorolac 30mg Inj IV ONE (03:30)
[2019-02-19 03:31] VITALS: BP 143/80
--- NOTE | 2019-02-19 03:33 | Emergency Room Report ---
History of Present Illness General Chief Complaint: Abdominal Pain Source: Patient Present Illness HPI Patient started having vomiting and diarrhea today. He also has pain in his abdomen. Pain is more on the left-hand side. Its episodic but underlying has constant nature. Is cramping and aching. It does not radiate. Initially he was unable to keep down liquids but now is able to keep down water. He has not taken any medication for this today. The diarrhea is brownish color without any blood. He denies any dysuria or hematuria. He rates the pain 9/10. Mostly it is constant. He believes he ate bad food. No fevers, chills, sore throat, chest pain, palpitations, dysuria, shortness of breath, joint pain, rashes, depression, anxiety, visual changes, headache. 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 Reviewed Nursing Documentation: PMH: Agreed; PSxH: Agreed Review of Systems All Other Systems: negative except mentioned in HPI Physical Exam Vital Signs Date Time Temp Pulse Resp B/P (MAP) Pulse Ox O2 Delivery O2 Flow Rate FiO2 02/19/19 03:09 98.2 61 16 143/80 (101) 97 Room Air Sp02 EP Interpretation: reviewed, normal General Appearance: well appearing, no apparent distress, GCS 15 Head: normocephalic, atraumatic Eyes: bilateral eye normal inspection, bilateral eye PERRL ENT: moist mucus membranes Neck: supple Respiratory: lungs clear, normal breath sounds Cardiovascular #1: regular rate, rhythm Cardiovascular #2: 2+ radial (R) Gastrointestinal: normal inspection, normal bowel sounds, no mass, non- distended, no guarding, no rebound, tenderness - Diffuse, scaphoid Genitourinary: no CVA tenderness Musculoskeletal: back normal, gait/station normal, normal range of motion Neurologic: alert, oriented x3, grossly normal Psychiatric: mood/affect normal Skin: no rash Medical Decision Making Diagnostic Impression: Primary Impression: Nausea vomiting and diarrhea Additional Impressions: Abdominal pain Qualified Codes: R10.32 - Left lower quadrant pain Renal insufficiency Dehydration ER Course Patient presents with nausea vomiting diarrhea and abdominal pain. Differential includes food poisoning, gastroenteritis, renal stone, UTI, diverticulitis amongst others. Evaluation will be with labs. The patient will receive IV hydration, Zofran, Pepcid and Toradol. Imaging studies are not indicated based on his exam and the pattern of pain at the moment. He will have serial abdominal exams. Labs with normal WBC. Increased BUN and creat. Tolerating oral intake. Discussed labs with patient. Patient stable for outpatient observation and treatment. Laboratory Tests Test 02/19/19 03:20 White Blood Count 6.5 K/UL (4.8-10.8) Red Blood Count 4.70 M/UL (4.70-6.10) Hemoglobin 14.6 G/DL (14.2-18.0) Hematocrit 43.8 % (42.0-52.0) Mean Corpuscular Volume 93 FL (80-99) Mean Corpuscular Hemoglobin 31.1 PG (27.0-31.0) H Mean Corpuscular Hemoglobin Concent 33.4 G/DL (32.0-36.0) Red Cell Distribution Width 12.0 % (11.6-14.8) Platelet Count 199 K/UL (150-450) Mean Platelet Volume 8.4 FL (6.5-10.1) Neutrophils (%) (Auto) 67.3 % (45.0-75.0) Lymphocytes (%) (Auto) 22.2 % (20.0-45.0) Monocytes (%) (Auto) 9.1 % (1.0-10.0) Eosinophils (%) (Auto) 0.8 % (0.0-3.0) Basophils (%) (Auto) 0.5 % (0.0-2.0) Urine Color Pale yellow Urine Appearance Clear Urine pH 6 (4.5-8.0) Urine Specific [place] 1.020 (1.005-1.035) Urine Protein Negative (NEGATIVE) Urine Glucose (UA) Negative (NEGATIVE) Urine Ketones Negative (NEGATIVE) Urine Blood 2+ (NEGATIVE) H Urine Nitrite Negative (NEGATIVE) Urine Bilirubin Negative (NEGATIVE) Urine Urobilinogen Normal MG/DL (0.0-1.0) Urine Leukocyte Esterase Negative (NEGATIVE) Urine RBC 2-4 /HPF (0 - 0) H Urine WBC 0-2 /HPF (0 - 0) Urine Squamous Epithelial Cells None /LPF (NONE/OCC) Urine Bacteria Occasional /HPF (NONE) Urine Mucus Moderate /LPF (NONE/OCC) H Sodium Level 140 MMOL/L (136-145) Potassium Level 3.8 MMOL/L (3.5-5.1) Chloride Level 104 MMOL/L (98-107) Carbon Dioxide Level 30 MMOL/L (21-32) Anion Gap 6 mmol/L (5-15) Blood Urea Nitrogen 20 mg/dL (7-18) H Creatinine 1.4 MG/DL (0.55-1.30) H Estimate Glomerular Filtration Rate > 60 mL/min (>60) Glucose Level 89 MG/DL (74-106) Calcium Level 9.5 MG/DL (8.5-10.1) Total Bilirubin 1.3 MG/DL (0.2-1.0) H Direct Bilirubin 0.2 MG/DL (0.0-0.3) Aspartate Amino Transferase (AST) 27 U/L (15-37) Alanine Aminotransferase (ALT) 31 U/L (12-78) Alkaline Phosphatase 53 U/L (46-116) Total Protein 8.0 G/DL (6.4-8.2) Albumin 4.3 G/DL (3.4-5.0) Globulin 3.7 g/dL Albumin/Globulin Ratio 1.2 (1.0-2.7) Lipase 141 U/L (73-393) Last Vital Signs Date Time Temp Pulse Resp B/P (MAP) Pulse Ox O2 Delivery O2 Flow Rate FiO2 02/19/19 03:09 98.2 61 16 143/80 (101) 97 Room Air Status: improved Disposition: HOME, SELF-CARE Condition: Improved Scripts Acetaminophen (Tylenol) 325 Mg Tablet 650 MG ORAL Q6H PRN for Prn Pain/Headache/Temp > 101, #20 TAB 0 Refills Prov: Carlos Almanzar MD 02/19/19 Tramadol Hcl* (ULTRAM*) 50 Mg Tablet 50 MG ORAL Q6H PRN for For Pain, #6 TAB 0 Refills Prov: Carlos Almanzar MD 02/19/19 Ondansetron Odt* (ZOFRAN ODT*) 4 Mg Tab.rapdis 4 MG BC EVERY 8 HOURS, #6 TAB 0 Refills Prov: Carlos Almanzar MD 02/19/19 Referrals: NOT CHOSEN [facility]/,REFERRING (PCP) Carlos Almanzar MD Feb 19, 2019 03:33
[2019-02-19 03:44] LABS: APPEARANCE,URINE CLEAR; BASOPHILS % (AUTO) 0.5 % (0.0-2.0); BILIRUBIN, URINE NEGATIVE (NEGATIVE); COLOR,URINE PALE YELLOW; EOSINOPHILS % (AUTO) 0.8 % (0.0-3.0); GLUCOSE, URINE (UA) NEGATIVE (NEGATIVE); HEMATOCRIT 43.8 % (42.0-52.0); HEMOGLOBIN 14.6 G/DL (14.2-18.0); KETONES,URINE NEGATIVE (NEGATIVE); LEUKOCYTE ESTERASE ,URINE NEGATIVE (NEGATIVE); LYMPHOCYTES % (AUTO) 22.2 % (20.0-45.0); MEAN CORPUSCULAR VOLUME 93 FL (80-99); MONOCYTES % (AUTO) 9.1 % (1.0-10.0); NEUTROPHILS % (AUTO) 67.3 % (45.0-75.0); NITRITE,URINE NEGATIVE (NEGATIVE); PH,URINE 6 (4.5-8.0); PLATELET COUNT 199 K/UL (150-450); PROTEIN,URINE NEGATIVE (NEGATIVE); UROBILINOGEN,URINE NORMAL MG/DL (0.0-1.0); WHITE BLOOD COUNT 6.5 K/UL (4.8-10.8)
[2019-02-19 03:56] LABS: ANION GAP 6 mmol/L (5-15); BLOOD UREA NITROGEN 20 mg/dL (7-18); CALCIUM 9.5 MG/DL (8.5-10.1); CARBON DIOXIDE 30 MMOL/L (21-32); CHLORIDE 104 MMOL/L (98-107); CREATININE 1.4 MG/DL (0.55-1.30); POTASSIUM 3.8 MMOL/L (3.5-5.1); SODIUM 140 MMOL/L (136-145)
[2019-02-19 04:06] LABS: ALANINE AMINOTRANSFERASE 31 U/L (12-78); ALBUMIN 4.3 G/DL (3.4-5.0); ALBUMIN/GLOBULIN RATIO 1.2 (1.0-2.7); ALKALINE PHOSPHATASE 53 U/L (46-116); ASPARTATE AMINO TRANSFERASE 27 U/L (15-37); BILIRUBIN,TOTAL 1.3 MG/DL (0.2-1.0)
[2019-02-19 04:08] LABS: BILIRUBIN,DIRECT 0.2 MG/DL (0.0-0.3)
[2019-02-19] MEDS ORDERED: ONDANSETRON ODT4 MG BC (04:12)
[2019-02-19] MEDS ORDERED: TRAMADOL HCL50 MG ORAL (04:12)
[2019-02-19] MEDS ORDERED: TYLENOL325 MG ORAL (04:12)
--- NOTE | 2019-02-19 04:45 | NUR ---
ED Nurse Note: provided pt with water, per ermd order. pt tolerating well. denies nausea.
[2019-02-19 05:13] VITALS: BP 110/75
--- NOTE | 2019-02-19 05:14 | NUR ---
ER DISCHARGE NOTE: Patient is cleared to be discharged per ERMD, pt is aox4, on room air, with stable vital signs. pt was given dc and prescription instructions, pt was able to verbalize understanding, pt id band and iv site removed without complications. pt is able to ambulate with steady gait. pt took all belongings.
== END 2019-02-19 05:15 | disposition home or self-care (01) ==
LOC: EMR 03:20
DX: R11.2 Nausea with vomiting, unspecified (principal); E86.0 Dehydration; N28.9 Disorder of kidney and ureter, unspecified; R10.32 Left lower quadrant pain
CPT/HCPCS: 36415; 80053; 81003; 82248; 83690; 85025; 96361; 96374; 96375; 99284; J1885; J2405; S0028

== ENCOUNTER 2019-09-27 11:47 | Emergency (ER) | payer MEDICAID ==
[~2019-09-27] VITALS: Ht 193 cm; Wt 88.5 kg
[2019-09-27 11:37] VITALS: BP 117/65
[~2019-09-27 11:47] MED LIST changes: +ONDANSETRON ODT4 MG BC; +TYLENOL325 MG ORAL
--- NOTE | 2019-09-27 11:47 | NUR ---
ED Nurse Note: PT WALKED IN TO ED FOR C/O SOB WITJH BODYACHES THAT STARTED YESTERDAY . TEMP 99.7 AT TRIAGE. DENIES ANY RECENT TRAVEL.
[2019-09-27] MEDS ORDERED: TAMIFLU75 MG ORAL (11:57)
[2019-09-27] MEDS ORDERED: ACETAMINOPHEN325 M1 ORAL (11:57)
[2019-09-27] MEDS ORDERED: IBUPROFEN600 MG ORAL (11:57)
--- NOTE | 2019-09-27 12:02 | Emergency Room Report ---
History of Present Illness General Chief Complaint: Flu Like Symptoms Source: Patient Present Illness HPI Disclaimer: Please note that this report is being documented using [employer] technology. This can lead to erroneous entry secondary to incorrect interpretation by the dictating instrument. HPI: 34-year-old male presents for evaluation of influenza-like symptoms. He notes 1.5 days of nonproductive cough, headaches, myalgias, chills, nausea but denies vomiting or diarrhea. No objective fevers recorded. Has not taken any medication yet. His girlfriend was sick last week with flulike symptoms but is now feeling much better. Denies recent travel. PMH: Denies PSH: Denies Allergies: Denies Social Hx: Denies Allergies: Coded Allergies: No Known Allergies (Unverified , 02/19/19) COVID-19 Screening Contact w/high risk pt: No Recent Travel to affected area: No Experienced COVID-19 symptoms?: No COVID-19 symptoms experienced: Shortness of Breath, Runny Nose, Flu-Like Symptoms Nursing Documentation-PMH Past Medical History: No Stated History Review of Systems All Other Systems: negative except mentioned in HPI Physical Exam Vital Signs Date Time Temp Pulse Resp B/P (MAP) Pulse Ox O2 Delivery O2 Flow Rate FiO2 09/27/19 11:37 80 19 Room Air 09/27/19 11:37 99.7 117/65 (82) 97 General: Awake and alert, no acute distress HEENT: NC/AT. EOMI. PERRLA. Uvula midline. Moist mucous membranes. Cardiovascular: RRR. S1 and S2 normal. No murmur appreciated Resp: Normal work of breathing. No cough, wheezing or crackles appreciated Abdomen: Abdomen is soft, nondistended. Nontender Skin: Intact. No abrasions, laceration or rash over the exposed skin MSK: Normal tone and bulk. Moving all extremities. No obvious deformity. Neuro: Awake and alert. Mentating appropriately. Medical Decision Making Diagnostic Impression: Primary Impression: Influenza-like symptoms ER Course 34-year-old otherwise healthy male presenting for evaluation of flulike symptoms of 1.5 days duration. Differential includes was not limited to viral syndrome, influenza, COVID-19, bronchitis, URI, pneumonia to name a few. He is well-appearing with stable vital signs and afebrile. He has not yet taken any medications. Given his girlfriend's recent influenza we will treat as an influenza and started on Tamiflu. He will be prescribed NSAIDs as well for aches pains and generalized discomfort. Lungs are clear. Do not believe he requires emergent labs or imaging at this time. Can follow-up on an outpatient basis. He will be isolated for 14 days. Unfortunately, coronavirus testing is not available at our facility at this time. Contact precautions and hand hygiene discussed with patient. Advised to return to the emergency department symptoms worsen. He understands and agrees with this treatment plan. Last Vital Signs Date Time Temp Pulse Resp B/P (MAP) Pulse Ox O2 Delivery O2 Flow Rate FiO2 09/27/19 11:37 99.7 80 19 117/65 97 Room Air Disposition: HOME, SELF-CARE Condition: Stable Scripts Acetaminophen* (ACETAMINOPHEN 325MG TABLET*) 325 Mg Tablet 650 MG ORAL Q6H PRN for For Pain, #40 TAB Prov: Raffaele Ortega MD 09/27/19 Ibuprofen* (MOTRIN*) 600 Mg Tablet 600 MG ORAL Q8H PRN for For Pain, #30 TAB 0 Refills Prov: Raffaele Ortega MD 09/27/19 Oseltamivir Phosphate (Tamiflu) 75 Mg Capsule 75 MG ORAL TWICE A DAY for 5 Days, #10 CAP Prov: Raffaele Ortega MD 09/27/19 Departure Forms: Return to Work Return to Work Date: Oct 11, 2019 Patient Instructions: Viral Respiratory Infection Additional Instructions: Call your primary physician as soon as possible to discuss emergency department visit. You may require reevaluation or further testing per your doctor's recommendations. Limit your contact with others as much as possible over the next 14 days. Stay minimum of 6 feet away from others, do not attend large gatherings and clean and disinfect all heavily used surfaces. Follow CDC guidelines for isolation and infection prevention. If you experience any new or worsening symptoms discussed with your doctor or return to the emergency department for reevaluation. Raffaele Ortega MD Sep 27, 2019 12:02
[2019-09-27 12:12] VITALS: BP 120/70
--- NOTE | 2019-09-27 12:12 | NUR ---
ER DISCHARGE NOTE: Patient is cleared to be discharged per ERMD, pt is aox4, on room air, with stable vital signs. pt was given dc and prescription instructions, pt was able to verbalize understanding, pt id band removed without complications. pt is able to ambulate with steady gait. pt took all belongings.
== END 2019-09-27 12:12 | disposition home or self-care (01) ==
LOC: EMR 12:12
DX: J11.1 Influenza due to unidentified influenza virus with other respiratory manifestations (principal)
CPT/HCPCS: 99282

== ENCOUNTER 2020-09-09 08:11 | Emergency (ER) | payer MEDICAID ==
[~2020-09-09] VITALS: Ht 193 cm; Wt 86.2 kg
[~2020-09-09 08:11] MED LIST changes: +ACETAMINOPHEN325 M1 ORAL; +TAMIFLU75 MG ORAL
[2020-09-09 08:28] VITALS: BP 132/68
[2020-09-09] MEDS ORDERED: IBUPROFEN600 M1 ORAL (08:57)
[2020-09-09] MEDS ORDERED: ROBAXIN-750750 MG PO (08:57)
[2020-09-09] MEDS ORDERED: LIDODERM700 M1 TOPIC (08:57)
[2020-09-09] MEDS ORDERED: Methocarbamol 750mg tab ORAL ONE (09:00)
--- NOTE | 2020-09-09 09:25 | NUR ---
ED Nurse Note: Pt arrived for back pain after working out, per pt. pt states able to move all extremities, sensation, color cap refill intact in bilat lower extremities. pt denies trauma to area, denies falling. pt medicated per eMAR. pt in bed. will continue to monitor. Pt cleared by health care Provider for discharge. DC instructions/prescription was given and explained to pt and verbalized understanding of teachings. All medical deviecs such as ID band removed. Pt is AAO x4, ambulatory and left with all personal belongings.
--- NOTE | 2020-09-09 09:28 | Emergency Room Report ---
History of Present Illness General Chief Complaint: Lower Back Pain or Injury Source: Patient Present Illness HPI 35-year-old male presents for back pain. Notes pain in his upper back ever since lifting in the gym yesterday. Pain is throbbing, 6 out of 10, nonradiating. Attempted to rest but states pain persists. No other aggravating relieving factors. Denies any other associated symptoms Allergies: Coded Allergies: No Known Allergies (Unverified , 02/19/19) COVID-19 Screening Contact w/high risk pt: No Recent Travel to affected area: No Experienced COVID-19 symptoms?: No COVID-19 symptoms experienced: Shortness of Breath, Runny Nose, Flu-Like Symptoms COVID-19 Testing performed SLUICE TENDER: No Patient History Past Medical History: none Past Surgical History: none Pertinent Family History: none Social History: Denies: smoking, alcohol use, drug use Immunizations: UTD Reviewed Nursing Documentation: PMH: Agreed; PSxH: Agreed Nursing Documentation-PMH Past Medical History: No Stated History Review of Systems All Other Systems: negative except mentioned in HPI Physical Exam Vital Signs Date Time Temp Pulse Resp B/P (MAP) Pulse Ox O2 Delivery O2 Flow Rate FiO2 09/09/20 08:28 97.3 64 16 132/68 (89) 18 Room Air Sp02 EP Interpretation: reviewed, normal General Appearance: no apparent distress, alert, GCS 15, non-toxic Head: normocephalic, atraumatic Eyes: bilateral eye normal inspection, bilateral eye PERRL ENT: hearing grossly normal, normal pharynx, no angioedema, normal voice Neck: full range of motion, no bony tend, supple/symm/no masses, tender lateral Respiratory: chest non-tender, lungs clear, normal breath sounds, speaking full sentences Cardiovascular #1: regular rate, rhythm, no edema Cardiovascular #2: 2+ carotid (R), 2+ carotid (L), 2+ radial (R), 2+ radial (L), 2+ dorsalis pedis (R), 2+ dorsalis pedis (L) Gastrointestinal: normal bowel sounds, non tender, soft, non-distended, no guarding, no rebound Rectal: deferred Genitourinary: normal inspection, no CVA tenderness Musculoskeletal: back normal, normal range of motion, gait/station normal, tender - Paraspinal upper thoracic tenderness Neurologic: alert, motor strength/tone normal, oriented x3, sensory intact, responsive, speech normal Psychiatric: judgement/insight normal, memory normal, mood/affect normal, no suicidal/homicidal ideation Reflexes: 3+ bicep (R), 3+ bicep (L), 3+ tricep (R), 3+ tricep (L), 3+ knee (R), 3+ knee (L) Skin: no rash Lymphatic: no adenopathy Medical Decision Making Diagnostic Impression: Primary Impression: Back pain Qualified Codes: M54.6 - Pain in thoracic spine ER Course Hospital Course 35-year-old male presents with upper back pain after weight lifting Differential diagnoses include: pyelonephritis, kidney stone, muscle strain, Lspine fracture Clinical course Patient placed on stretcher. After initial history physical exam reveals male in no acute distress. There is upper thoracic back pain not midline. Discussed findings with patient likely muscular. No imaging required. Given meds in ED. Safe for discharge with close outpatient follow-up Diagnosis - back pain Stable and discharged to home. Followup with PMD. Return to ED if symptoms recur or worsen Last Vital Signs Date Time Temp Pulse Resp B/P (MAP) Pulse Ox O2 Delivery O2 Flow Rate FiO2 09/09/20 09:02 Room Air 09/09/20 08:28 97.3 64 16 132/68 (89) 18 Status: improved Disposition: HOME, SELF-CARE Condition: Stable Scripts Lidocaine Patch* (Lidoderm Patch*) 1 Each Adh..patch 1 PATCH TOPIC DAILY, #7 PATCH 0 Refills Patch(es) may remain in place for up to 12 hours in any 24-hour period. Prov: Gage Rice MD 09/09/20 Methocarbamol* (ROBAXIN-750*) 750 Mg Tablet 750 MG PO TID, #21 TAB 0 Refills Prov: Gage Rice MD 09/09/20 Ibuprofen* (MOTRIN*) 600 Mg Tablet 600 MG ORAL Q8H PRN for FOR PAIN, #30 TAB 0 Refills Prov: Gage Rice MD 09/09/20 Departure Forms: Return to Work Return to Work Date: Sep 11, 2020 Work Restrictions: No Heavy Lifting Patient Instructions: Back Pain, Adult Gage Rice MD Sep 09, 2020 09:28
== END 2020-09-09 09:31 | disposition home or self-care (01) ==
LOC: EMR 08:51
DX: M54.6 Pain in thoracic spine (principal)
CPT/HCPCS: 99282